=== PATIENT | female | born 1980 | race Caucasian/White ===

== ENCOUNTER → 2021-10-01 14:10 | Outpatient (CLI) | payer BC, SELFPAY ==
--- NOTE | ~2021-10-01 | MM_ITS ---
EXAMINATION: MM diag chani implant BI w isabela HISTORY: Possible implant rupture TECHNIQUE: Additional 3-D tomosynthesis images of the breasts were performed and synthetic 2-D images were generated. Implant displaced views are obtained. CAD analysis was submitted and interpreted. COMPARISON: None BREAST PARENCHYMAL COMPOSITION: The breasts are heterogenously dense, which may obscure small masses FINDINGS: There are bilateral subglandular silicone implants. There are no suspicious masses, calcifi cations or architectural distortion in either breast to suggest malignancy. IMPRESSION: 1. No mammographic evidence for malignancy in either breast. If there is concern for implant rupture, correlation with MRI recommended. 2. Routine yearly screening mammogram and regular clinical breast examination are recommended. BI-RADS Category 1: Negative Reviewed, dictated and finalized at location A. IMPRESSION: 1. No mammographic evidence for malignancy in either breast. If there is concer n for implant rupture, correlation with MRI recommended. 2. Routine yearly screening mammogram and regular clinical breast examination a re recommended. BI-RADS Category 1: Negative
== END ==
PROVIDERS: PCP Family Medicine; Visit Provider Surgery Plastic and Reconstructive Surgery
DX: Z12.31 Encounter for screening mammogram for malignant neoplasm of breast (principal); Z80.3 Family history of malignant neoplasm of breast
CPT/HCPCS: 77062; 77066; G0279

== ENCOUNTER 2021-10-15 01:09 | Day surgery (SDC) | payer OTHER, SELFPAY ==
[2021-10-10 14:50] VITALS: BMI 23.7
--- NOTE | 2021-10-10 15:00 | PC.NURSE ---
Report to the Outpatient Waiting Room, entrance under the green pavilion located off [facility], at time ___629____ on date __10/15/21 . OR Time: ___829 . - You and your visitor will be asked a series of questions to screen for COVID 19 for your protection. - Only one visitor is allowed at this time. - The patient visitor is requested to leave or wait in car when not with patient. - A mask is required within the hospital. Patients may have clear liquids (water, carbonated beverages, clear teas, apple juice) until 3 hours prior to surgery ( 0530 AM)with a maximum of 20 ounces. - No food from midnight until time of surgery Take the following medications with a SIP of water the morning of surgery: __VYVANSE, CLONAZEPAM IF NEEDED__ Medications to discontinue per physician N/A, Date to take last dose Please no make-up, nail [place], hairspray, perfume, deodorant, or body powder the day of surgery. No jewelry (including any body piercings) or valuables the day of surgery, leave them at home. Please take a shower or bath the night before, or the morning of, surgery with an antibacterial soap. Wear comfortable, loose fitting clothing. - Jewelry must be removed prior to entering the operating room. Rings and piercings that are not removed may be cut off. - The hospital will not accept responsibility for valuables. - Please leave all valuables, including medications, at home the day of surgery. If you are going home after surgery, a licensed seasonal driver must drive you home. - NO public transportation without another adult. - We recommend that an adult stay with you for 24 hours following discharge. - We also recommend that you do not drive, make important decision, drink alcoholic beverages, or take any drugs that were not prescribed by your health care provider for at least 24 hours after your discharge time. Follow any additional instructions given to you from your surgeon. If you or anyone in your household have experienced Covid symptoms in the past week, please notify your surgeon or the nurse liaison at the phone number below for possible testing. Telephone instructions given to ___PT and asked if any additional questions and then verbalized understanding. Patient advised to call surgeon office or pre surgery nurse liaison [phone] if any additional questions.
[2021-10-15] VITALS (9 sets, daily range): BP systolic 110–125; BP diastolic 74–85; PULSE 60–93; RESP 10–20; TEMP 36.5–36.8; O2SAT 100
[2021-10-15] MEDS: LACTATED RINGERS 1,000 ML 30 ML IV CONT ×2 (06:59→10:37)
--- NOTE | 2021-10-15 07:38 | P.PNAN_ITS ---
Anes - Initial Pre Proc Eval Procedure: Operation Date: 10/15/21 08:30 Proposed Procedures p Capsulectomy Bilateral Breast Implant Exchange - Roe Carter MD Date/Time: 10/15/21 07:38 Surgeon: Roe Carter MD Pre Op Diagnosis: left breast implant rupture Patient Data Age: 41 Gender: F Height: 1.64 m Weight: 67.8 kg Last Vital Signs Temp 36.8 C 10/15/21 06:31 Pulse 77 10/15/21 06:31 Resp 18 10/15/21 06:31 BP 124/74 10/15/21 06:31 Pulse Ox 100 10/15/21 06:31 O2 Del Method Room Air 10/15/21 06:31 Allergies Allergy/AdvReac Type Severity Reaction Status Date / Time No Known Allergies Allergy Unverified 10/15/21 07:10 Home Medications Medication Instructions Recorded Confirmed Type docusate sodium 100 mg capsule 100 mg PO DAILY #14 caps 09/30/21 10/15/21 Rx (Colace) levonorgestrel 20 mcg/24 hours (7 1 device intrauterine ONCE 09/30/21 10/15/21 History yrs) 52 mg intrauterine device (Mirena) lisdexamfetamine [Vyvanse] 40 mg PO QAM 09/30/21 10/15/21 History ondansetron 4 mg disintegrating 4 mg PO Q8H #21 tabs 09/30/21 10/15/21 Rx tablet clonazepam 0.5 mg tablet 0.5 mg DAILY PRN Anxiety 10/10/21 10/15/21 History carisoprodol 350 mg tablet (Soma) 350 mg PO TID PRN muscle pain #21 10/14/21 Rx tabs oxycodone-acetaminophen 5 mg-325 1 tablet PO Q6H PRN pain #30 tabs 10/14/21 Rx mg tablet (Percocet) Patient hx anesthesia problems: none Family hx anesthesia problems: none Results Review: All pre-operative results and documents have been reviewed as part of the pre- operative evaluation. [facility] Past Medical History Medical History (Updated 10/15/21 @ 07:38 by Hector Posey DO) ADHD Anxiety Family History Family History Grandparent Family history of malignant neoplasm of breast Social History Social History Smoking status: Never smoker Second hand tobacco smoke exposure: No Alcohol intake: current Drinks per week: 1 Substance use: never Substance use type: does not use Living arrangements: with family Spiritual care concerns: No Anes - Eval Final PreProcedure Day of Procedure 10/15/21 07:38 Patient weight: overweight Heart: regular rate and rhythm Lungs: clear to auscultation and normal air movement Airway: Mallampati scale class II Neurological: alert and oriented Last oral intake: >/= 8 hours ASA classification: II Emergent: no Anesthetic plan: proceed Anesthesia type and monitoring: general LMA and standard monitoring Results Review: All pre-operative results and documents have been reviewed as part of the pre- operative evaluation. Informed Consent: The patient's anesthetic plan and its attendant risks and benefits were discussed with the patient/family/POA. Questions were solicited and answers provided to the satisfaction of the patient/family/POA.
[2021-10-15] MEDS: SCOPOLAMINE 1.5 MG PATCH TRANSDERM (08:15)
--- NOTE | 2021-10-15 08:16 | WPDHPUPDATE1 ---
History and Physical Update Update Date/Time: 10/15/21 08:16 History and Physical has been reviewed, including an updated exam of the patient. There are NO changes in the patient's condition. Risks, benefits, and alternatives have been discussed and questions answered. Patient agrees to proceed with procedure.
--- NOTE | 2021-10-15 08:26 | P.OP_ITS ---
Procedure Note - Detailed Date of Procedure 10/15/21 Pre-op Diagnosis left breast implant rupture Post-op Diagnosis Same Procedure Performed Bilateral implant exchange Surgeon Roe Carter MD Anesthesia General Indications Textured implants, left breast capsular contracture, possible left breast rupture. Findings Left breast intracapsular fluid. Able to capture approximatly 15cc for pathology, estimated volume 30-50cc. Left breast implant rupture noted Near total capsulectomy Change to submuscular plane New implants Bilateral Jose Mi SoftTouch Right - REF# [id number] SN [id number] Left - REF# [id number] SN [id number] Description of Procedure Preoperatively the risks benefits, alternatives were discussed in extensive detail. I want her to be very realistic about the risks involved as well. Discussed her goals. Limitations of the implant. She does have concerns about going much narrower as she will lose height of the implant. She is okay with gaining projection and approximately 20% volume. She understands going submuscular will significantly change her appearance. She understands I cannot guarantee total capsulectomy. This was a lengthy open-ended conversation making sure she was well informed. All questions were answered to her satisfaction today. She would like proceed. Consent obtained. She was taken to the operating room placed supine on the operating room table. Anesthesia provided by anesthesiology. Prepped and draped in standard sterile fashion. Surgical time-out was taken. 1% lidocaine and 0.25% Marcaine with epinephrine was used anesthetize as a field block. Tegaderm nipple Driscoll were placed. Fifteen blade used to excise the previous IMF scar. Dissection was continued down to the capsule was identified and elevated just above the capsule removing the majority of this capsule. Implants were removed with findings as above. I copiously irrigated with 3 L of saline solution on TUR tubing. Verified strict hemostasis. I incised the pectoralis major along its inferior border. Dissection was continued down the subpectoral to create the appropriate size pocket. I used 2- 0 Vicryl to secure the pectoralis major to the subglandular tissue. Again copiously irrigated with saline solution. Verified strict hemostasis. I then irrigated with antibiotic Betadine solution. Using a no-touch technique a Rodriguez funnel and after washing my gloves the implant was introduced into the pocket. I closed with 2-0 Vicryl followed by 3-0 Monocryl followed by running subcuticular 4-0 Monocryl and tissue glue. She tolerated the procedure well. Estimated Blood Loss 100 Drains No Packing No Pathology Yes (Bilateral capsules, left breast intracapsular fluid (red coloration)) Complications No immediate complications Condition Stable Disposition PACU
[2021-10-15] MEDS: ceFAZolin 2 GM/D5W 50 ML 2 GM/50 ML BAG IVPB (08:33)
[2021-10-15] MEDS: NACL 0.9% IRRIG POUR BOTTLE 900 ML, GENTAMICIN SULFATE INJ 160 MG, ceFAZolin 2 GM, POVI... IRRIGATION (08:50)
[2021-10-15] MEDS: BUPIVACAINE HCL 0.25% PF 30 ML VIAL INFILTRATE (09:02)
[2021-10-15] MEDS: LIDO 1%/EPINEPHRINE/PF 1:200,000 30 ML VIAL 40 ML XX (09:05)
--- NOTE | 2021-10-15 10:15 | SUR.OPER ---
breast capsules and fluid given to kingsley in pathology by diego at 1015am.
[2021-10-15] MEDS: fentaNYL CITRATE INJ (*CRX) 100 MCG/2 ML VIAL 25 MCG IV PUSH ×5 (10:53→12:12)
[2021-10-15] MEDS: oxyCODONE HCL (*CRX) 5 MG TAB IR PO (12:32)
== END 2021-10-15 12:55 | disposition home or self-care (01) ==
PROVIDERS: PCP Family Medicine; Visit Provider Surgery Plastic and Reconstructive Surgery
PROC: (CPT 19342; principal; 2021-10-15 08:30)
DX: T85.41XA Breakdown (mechanical) of breast prosthesis and implant, initial encounter (principal); Y83.8 Other surgical procedures as the cause of abnormal reaction of the patient, or of later complication, without mention of misadventure at the time of the procedure; F41.9 Anxiety disorder, unspecified
CPT/HCPCS: 19371; 19325; 88104; 88108; 88184; 88304; 88305; A9270; J0690; J1100; J1580; J2250; J2370; J2405; J2704; J3010; J7120